=== PATIENT | female | born 1985 | race Caucasian/White ===

== ENCOUNTER 2020-07-13 18:57 | Outpatient (CLI) | payer BC ==
[2020-07-13 19:24] VITALS: BP 123/79
[2020-07-13 19:26] LABS: MICROSCOPIC INDICATED
== END 2020-07-13 20:33 | disposition home or self-care (01) ==
LOC: LDOP 18:57
PROVIDERS: ATTEND Obstetrics & Gynecology
DX: O09.93 Supervision of high risk pregnancy, unspecified, third trimester (principal); O36.8130 Decreased fetal movements, third trimester, not applicable or unspecified; Z3A.35 35 weeks gestation of pregnancy
CPT/HCPCS: 59025; 76815; 81001; 87086

== ENCOUNTER 2020-08-08 00:10 | Inpatient (IN) | payer BC ==
[~2020-08-08] VITALS: Ht 170.2 cm; Wt 90.9 kg
[2020-08-08] MEDS ORDERED: LACTATED RINGERS 1,000 ML IVBOLUS ONE (08:00)
[2020-08-08] MEDS ORDERED: METOCLOPRAMIDE 5 MG/ML, 2ML IV ONE ×2 (08:00→12:30)
[2020-08-08] MEDS ORDERED: SODIUM CITRATE/CITRIC ACID 30 ML UDC PO ONE ×2 (08:00→12:30)
[2020-08-08] MEDS ORDERED: NEWBORN KIT ONE (08:02)
[2020-08-08] MEDS ORDERED: SODIUM CITRATE/CITRIC ACID 15 ML UDC ONE ×2 (08:03→12:15)
[2020-08-08] MEDS ORDERED: OXYTOCIN 30U/ 0.9% NaCL 500ML 500 ML ONE (08:03)
[2020-08-08] MEDS ORDERED: METOCLOPRAMIDE 5 MG/ML, 2ML ONE ×2 (08:03→12:14)
[2020-08-08 08:23] LABS: BASOPHILS % (AUTO) 0 % (0-1); EOSINOPHILS % (AUTO) 1 % (1-7); LYMPHOCYTES % (AUTO) 21 % (22-44); MEAN CORPUSCULAR HEMOGLOBIN 27.1 pg (27.0-34.8); MEAN CORPUSCULAR HGB CONC 33.1 g/dL (32.4-35.8); MEAN PLATELET VOLUME 9.6 fL (7.4-10.4); MONOCYTES % (AUTO) 4 % (2-9); NEUTROPHILS % (AUTO) 74 % (42-75); PLATELET COUNT 197 x10^3/uL (130-400); RED BLOOD COUNT 4.23 x10^6/uL (3.82-5.3); RED CELL DISTRIBUTION WIDTH 16.4 % (9.6-15.2)
[2020-08-08] MEDS: LACTATED RINGERS 1,000 ML IV SCH ×5 (08:25→22:00)
[2020-08-08 08:26] LABS: MD NO
[2020-08-08 08:58] VITALS: BP 112/74
[2020-08-08] MEDS ORDERED: ONDANSETRON 2MG/ML, 2ML ONE (12:23)
[2020-08-08] MEDS ORDERED: CEFAZOLIN 1,000 MG ONE (12:23)
[2020-08-08] MEDS ORDERED: OXYTOCIN 10 UNITS/ML, 1ML ONE (12:23)
[2020-08-08] MEDS ORDERED: HYDROmorphone 2 MG/ML, 1ML ONE (12:24)
[2020-08-08] MEDS ORDERED: KETOROLAC 30 MG/1 ML ONE (12:24)
[2020-08-08] MEDS ORDERED: FENTANYL PF 100 MCG/2ML ONE (12:24)
[2020-08-08] MEDS ORDERED: MISOPROSTOL 200 MCG TABLET ONE (12:28)
[2020-08-08] MEDS ORDERED: ONDANSETRON 2MG/ML, 2ML IV PRN (14:00)
[2020-08-08] MEDS ORDERED: SIMETHICONE 80 MG CHEW TAB PO PRN (14:00)
[2020-08-08] MEDS ORDERED: DIPH,PERTUSS(ACELL),TET VAC/PF NC IM-VACC PRN (14:00)
[2020-08-08] MEDS ORDERED: MISOPROSTOL 200 MCG TABLET SL PRN (14:00)
[2020-08-08] MEDS ORDERED: IBUPROFEN 800 MG TABLET PO PRN (14:00)
[2020-08-08] MEDS ORDERED: CALCIUM CARBONATE 500 MG TAB.CHEW PO PRN (14:00)
[2020-08-08] MEDS ORDERED: METOCLOPRAMIDE 5 MG/ML, 2ML IV PRN (14:00)
[2020-08-08] MEDS: KETOROLAC 30 MG/1 ML IV SCH ×2 (14:00→19:30)
[2020-08-08] MEDS ORDERED: METHYLERGONOVINE 0.2 MG/ML IM PRN (14:00)
[2020-08-08] MEDS ORDERED: ACETAMINOPHEN 325 MG TABLET PO PRN (14:00)
[2020-08-08] MEDS: OXYTOCIN 30U/ 0.9% NaCL 500ML 500 ML IV SCH (14:12)
[2020-08-08] MEDS ORDERED: OXYcodone 5 MG/5 ML ORAL.SOL UDC ONE (14:37)
[2020-08-08 15:20] VITALS: BP 115/70
[2020-08-08] MEDS: OXYcodone IR 5MG TABLET PO PRN ×3 (16:30→21:13)
[2020-08-08] MEDS: morphine SULFATE 10 MG/ML, 1ML IVPush PRN (17:25)
[2020-08-08 19:32] VITALS: BP 116/73
[2020-08-08] MEDS: DOCUSATE 100 MG CAPSULE PO SCH (21:13)
[2020-08-08 21:50] LABS: BASOPHILS % (AUTO) 0 % (0-1); EOSINOPHILS % (AUTO) 0 % (1-7); LYMPHOCYTES % (AUTO) 26 % (22-44); MEAN CORPUSCULAR HEMOGLOBIN 26.9 pg (27.0-34.8); MEAN CORPUSCULAR HGB CONC 32.9 g/dL (32.4-35.8); MEAN PLATELET VOLUME 9.9 fL (7.4-10.4); MONOCYTES % (AUTO) 3 % (2-9); NEUTROPHILS % (AUTO) 71 % (42-75); PLATELET COUNT 164 x10^3/uL (130-400); RED BLOOD COUNT 3.91 x10^6/uL (3.82-5.3); RED CELL DISTRIBUTION WIDTH 16.3 % (9.6-15.2)
[2020-08-08 21:54] LABS: MD NO
[2020-08-09 00:36] VITALS: BP 126/73
[2020-08-09] MEDS: OXYcodone IR 5MG TABLET PO PRN ×6 (01:15→22:54)
[2020-08-09] MEDS: KETOROLAC 30 MG/1 ML IV SCH ×2 (01:15→07:32)
[2020-08-09] MEDS: LACTATED RINGERS 1,000 ML IV SCH ×3 (03:34→10:00)
[2020-08-09 04:31] VITALS: BP 108/63
[2020-08-09] MEDS ORDERED: OXYcodone 5 MG/5 ML ORAL.SOL UDC ONE (05:17)
[2020-08-09] MEDS ORDERED: OXYcodone IR 5MG TABLET ONE (05:23)
[2020-08-09] MEDS: DOCUSATE 100 MG CAPSULE PO SCH ×2 (07:32→20:16)
[2020-08-09] MEDS: PRENATAL VIT/IRON/FA 1 EACH TABLET PO SCH (07:36)
[2020-08-09 08:00] VITALS: BP 116/73
[2020-08-09] MEDS: OXYTOCIN 30U/ 0.9% NaCL 500ML 500 ML IV SCH ×2 (10:00)
[2020-08-09 12:06] VITALS: BP 118/77
[2020-08-09] MEDS: IBUPROFEN 600 MG TABLET PO PRN ×2 (13:56→20:16)
[2020-08-09] MEDS: morphine SULFATE 10 MG/ML, 1ML IVPush PRN (15:28)
[2020-08-09 19:47] VITALS: BP 120/75
[2020-08-10] MEDS: IBUPROFEN 600 MG TABLET PO PRN (03:03)
[2020-08-10] MEDS: OXYcodone IR 5MG TABLET PO PRN ×2 (03:04→07:14)
[2020-08-10] MEDS: PRENATAL VIT/IRON/FA 1 EACH TABLET PO SCH (07:14)
[2020-08-10] MEDS: DOCUSATE 100 MG CAPSULE PO SCH (07:14)
[2020-08-10 07:20] VITALS: BP 119/77
[2020-08-10] MEDS ORDERED: IBUP-1222 PO (08:15)
[2020-08-10] MEDS ORDERED: OXYC1TAB14 PO (08:15)
[2020-08-10] MEDS ORDERED: OXYcodone/APAP 5/325MG TABLET PO PRN (08:30)
== END 2020-08-10 10:38 | disposition home or self-care (01) | DRG 785 ==
LOC: NSY 07:38 → 2NE 08:26 → 2NW 15:06
PROVIDERS: ADMIT Obstetrics & Gynecology; ATTEND Obstetrics & Gynecology
PROC: 10D00Z1 Extraction of Products of Conception, Low, Open Approach (ICD-10-PCS; principal; 2020-08-08)
PROC: 0UB70ZZ Excision of Bilateral Fallopian Tubes, Open Approach (ICD-10-PCS; 2020-08-08)
DX: O34.211 Maternal care for low transverse scar from previous cesarean delivery (principal); O40.3XX0 Polyhydramnios, third trimester, not applicable or unspecified; O43.123 Velamentous insertion of umbilical cord, third trimester; Z37.0 Single live birth; Z3A.39 39 weeks gestation of pregnancy; Z30.2 Encounter for sterilization; Z88.2 Allergy status to sulfonamides
CPT/HCPCS: 36415; 85025; 86592; 86850; 86900; 88305; G0378; J0690; J1170; J1885; J2405; J3010; J2270; J2590; J2765; J7120